=== PATIENT | male | born 1975 | race Caucasian/White ===

== ENCOUNTER 2019-04-23 20:21 | Emergency (ER) | payer OTHER ==
[~2019-04-23] VITALS: Ht 190.5 cm; Wt 108.4 kg
[2019-04-23 20:26] VITALS: Ht 190.5 cm; Wt 108.4 kg
[2019-04-23 21:17] LABS: BASOPHIL % 0.2 % (0-2); PLATELET COUNT 203 x10^3mcL (130-400); RED CELL DISTRIBUTION WIDTH 12.6 % (11.5-14.5)
[2019-04-23 21:27] LABS: CALCIUM 8.9 mg/dL (8.5-10.1); CARBON DIOXIDE 28.8 mmol/L (21-32); CHLORIDE SERUM 100 mmol/L (98-107); GFR1 > 60 mL/min; GLUCOSE SERUM 104 mg/dL (74-106); POTASSIUM SERUM 4.1 mmol/L (3.5-5.1); SODIUM SERUM 139 mmol/L (136-145)
[2019-04-23 21:38] LABS: ALBUMIN 4.4 g/dL (3.4-5.0); ALKALINE PHOSPHATASE 58 U/L (46-116); ALT/SGPT 58 U/L (16-63); AST/SGOT 31 U/L (15-37); BILIRUBIN TOTAL 0.6 mg/dL (0.20-1.00); TOTAL PROTEIN, SERUM 8.2 g/dL (6.4-8.2)
[2019-04-24 00:56] VITALS: BP 145/86
[2019-04-24 02:21] LABS: AMPHETAMINE QUAL UR NONE DETECTED (See below)
== END 2019-04-24 01:05 | disposition home or self-care (01) ==
LOC: ED 20:21
PROVIDERS: Emergency Medicine
DX: M54.12 Radiculopathy, cervical region (principal); M62.830 Muscle spasm of back; R51 Headache; J45.909 Unspecified asthma, uncomplicated; I10 Essential (primary) hypertension; E78.00 Pure hypercholesterolemia, unspecified; M10.9 Gout, unspecified
CPT/HCPCS: G0480; J1885; J3010; J7030

== ENCOUNTER 2019-12-17 17:43 | Emergency (ER) | payer OTHER ==
[~2019-12-17] VITALS: Ht 190.5 cm; Wt 104.3 kg
[2019-12-17 17:57] VITALS: Ht 190.5 cm; Wt 104.3 kg
[2019-12-17 19:49] VITALS: BP 130/85
== END 2019-12-17 19:49 | disposition home or self-care (01) ==
LOC: ED 17:43
DX: S73.101A Unspecified sprain of right hip, initial encounter (principal); J45.909 Unspecified asthma, uncomplicated; F17.210 Nicotine dependence, cigarettes, uncomplicated; I10 Essential (primary) hypertension; Z88.8 Allergy status to other drugs, medicaments and biological substances; Z87.39 Personal history of other diseases of the musculoskeletal system and connective tissue; W18.30XA Fall on same level, unspecified, initial encounter; Y93.89 Activity, other specified; Y92.89 Other specified places as the place of occurrence of the external cause; Y99.8 Other external cause status
CPT/HCPCS: 99406; J1885

== ENCOUNTER 2020-02-27 21:11 | Emergency (ER) | payer OTHER ==
[~2020-02-27] VITALS: Ht 188 cm; Wt 104.3 kg
[2020-02-27 21:19] VITALS: Ht 188 cm; Wt 104.3 kg
[2020-02-27 22:52] LABS: BASOPHIL % 0.2 % (0-2); PLATELET COUNT 210 x10^3mcL (130-400); RED CELL DISTRIBUTION WIDTH 13.4 % (11.5-14.5)
[2020-02-27 23:03] LABS: CALCIUM 9.1 mg/dL (8.5-10.1); CARBON DIOXIDE 26.6 mmol/L (21-32); CHLORIDE SERUM 98 mmol/L (98-107); GFR1 > 60 mL/min; GLUCOSE SERUM 109 mg/dL (74-106); POTASSIUM SERUM 3.7 mmol/L (3.5-5.1); SODIUM SERUM 136 mmol/L (136-145)
[2020-02-27 23:08] LABS: ALBUMIN 4.4 g/dL (3.4-5.0); ALKALINE PHOSPHATASE 55 U/L (46-116); ALT/SGPT 72 U/L (16-63); AST/SGOT 45 U/L (15-37); BILIRUBIN TOTAL 0.47 mg/dL (0.20-1.00); LIPASE 213 IU/L (73-393); TOTAL PROTEIN, SERUM 8.5 g/dL (6.4-8.2)
[2020-02-28 01:47] LABS: microscopic required? NO
[2020-02-28 01:52] LABS: UA SPECIFIC GRAVITY <=1.005 (1.005-1.035); urine erythrocyte NEGATIVE (NEGATIVE)
[2020-02-28 02:29] VITALS: BP 123/77
== END 2020-02-28 02:20 | disposition home or self-care (01) ==
LOC: ED 21:11
PROVIDERS: Emergency Medicine
DX: R10.2 Pelvic and perineal pain (principal); I10 Essential (primary) hypertension; J45.909 Unspecified asthma, uncomplicated; E78.00 Pure hypercholesterolemia, unspecified; Z98.890 Other specified postprocedural states; Z88.8 Allergy status to other drugs, medicaments and biological substances
CPT/HCPCS: J0696; J1885; J2270; J7030; Q0092; Q9967